=== PATIENT | male | born 1990 | race Two or more races ===

== ENCOUNTER 2022-03-01 13:36 | Outpatient (CLI) | payer OTHER | END 2022-03-01 13:38 | disposition home or self-care (01) | LOC: LAB 13:36 | PROVIDERS: ATTEND Urology | DX: N20.0 Calculus of kidney (principal); N20.1 Calculus of ureter; N30.00 Acute cystitis without hematuria ==

== ENCOUNTER 2022-03-14 11:00 | Day surgery (SDC) | payer OTHER ==
[~2022-03-14] VITALS: Ht 180.3 cm; Wt 77.1 kg
== END 2022-03-14 18:50 | disposition home or self-care (01) ==
LOC: CIR.AMB 11:00
PROVIDERS: ATTEND Urology
DX: N13.2 Hydronephrosis with renal and ureteral calculous obstruction (principal); Z88.6 Allergy status to analgesic agent; Z87.891 Personal history of nicotine dependence; Z20.822 Contact with and (suspected) exposure to COVID-19

== ENCOUNTER 2022-03-16 14:19 | Outpatient (CLI) | payer OTHER | END 2022-03-16 14:23 | disposition home or self-care (01) | LOC: RAD 14:19 | PROVIDERS: ATTEND Urology | DX: N20.0 Calculus of kidney (principal) ==

== ENCOUNTER 2022-03-26 11:05 | Outpatient (CLI) | payer OTHER | END 2022-03-26 11:15 | disposition home or self-care (01) | LOC: LAB 11:05 | PROVIDERS: ATTEND Urology | DX: N30.10 Interstitial cystitis (chronic) without hematuria (principal) ==

== ENCOUNTER 2022-03-27 12:27 | Outpatient (CLI) | payer OTHER | END 2022-03-27 12:37 | disposition home or self-care (01) | LOC: RAD 12:27 | PROVIDERS: ATTEND Urology | DX: N20.1 Calculus of ureter (principal) ==

== ENCOUNTER 2022-04-17 12:17 | Outpatient (CLI) | payer OTHER | END 2022-04-17 12:18 | disposition home or self-care (01) | LOC: LAB 12:17 | PROVIDERS: ATTEND Urology | DX: N30.00 Acute cystitis without hematuria (principal) ==

== ENCOUNTER 2022-06-30 11:04 | Emergency (ER) | payer OTHER ==
[~2022-06-30] VITALS: Ht 180.3 cm; Wt 77.1 kg
[2022-06-30] MEDS ORDERED: PERCOCET 5-3251 EACH PO (16:38)
[2022-06-30] MEDS ORDERED: TAMS0.4C PO (16:38)
[2022-06-30] MEDS ORDERED: ONDANSETRON ODT4 MG PO (16:38)
[2022-06-30] MEDS ORDERED: PYRIDIUM DS200 MG PO (16:38)
[2022-06-30] MEDS ORDERED: PEPCID AC20 MG PO (16:38)
== END 2022-06-30 17:01 ==
LOC: ER 11:04
DX: N13.2 Hydronephrosis with renal and ureteral calculous obstruction (principal); R10.32 Left lower quadrant pain; Z88.6 Allergy status to analgesic agent

== ENCOUNTER 2022-07-04 09:49 | Outpatient (CLI) | payer OTHER ==
[~2022-07-04 09:49] MED LIST: ONDANSETRON ODT4 MG PO; PEPCID AC20 MG PO; PERCOCET 5-3251 EACH PO; PYRIDIUM DS200 MG PO; TAMS0.4C PO
== END 2022-07-04 10:00 | disposition home or self-care (01) ==
LOC: SONOGRAMA 09:49
PROVIDERS: ATTEND Urology
DX: N20.9 Urinary calculus, unspecified (principal); R10.9 Unspecified abdominal pain; N20.0 Calculus of kidney; N20.1 Calculus of ureter

== ENCOUNTER 2022-11-05 08:34 | Outpatient (CLI) | payer OTHER | END 2022-11-05 08:42 | disposition home or self-care (01) | LOC: RAD 08:34 | PROVIDERS: ATTEND Urology | DX: N20.1 Calculus of ureter (principal) ==

== ENCOUNTER 2022-11-05 09:36 | Outpatient (CLI) | payer OTHER | END 2022-11-05 09:41 | disposition home or self-care (01) | LOC: LAB 09:36 | PROVIDERS: ATTEND Urology | DX: N20.0 Calculus of kidney (principal) ==